=== PATIENT | male | born 1990 | race Caucasian/White ===

== ENCOUNTER 2020-01-04 11:54 | Emergency (ER) | payer SELFPAY ==
[~2020-01-04] VITALS: Ht 175.3 cm; Wt 97.8 kg
[2020-01-04] MEDS ORDERED: methylPREDNISolone SOD SUCC 125 MG/2 ML ONE (12:07)
[2020-01-04] MEDS ORDERED: DIPHENHYDRAMINE 50 MG/ML, 1ML ONE (12:07)
[2020-01-04] MEDS ORDERED: FAMOTIDINE 20 MG/2 ML ONE (12:07)
--- NOTE | 2020-01-04 12:10 | NUR ---
PT PRESENTS TO ED, STATES HE HAS DEVELOPED FACIAL SWELLING AND FULL BODY RASH/ITCHINESS 1 HR AGO AFTER TAKING FIRST DOSE OF KEFLEX FOR DENTAL ABCESS. PT IS A&O, ABLE TO TOLERATE SECRETIONS, ABLE TO SPEAK IN FULL SENTENCES WITHOUT DIFFICULTY. RESPS EVEN AND UNLABORED. ALL MONITORS IN PLACE. CHAVO CRUZ AT BEDSIDE.
--- NOTE | 2020-01-04 12:23 | NUR ---
PT MEDICATED PER EMAR, TOLERATED WELL. REPORT GIVEN AT BEDSIDE TO ROMINA MARTE.
--- NOTE | 2020-01-04 12:29 | NUR ---
report received from lilly cool.
[2020-01-04] MEDS ORDERED: SODIUM CHLORIDE FLUSH 10ML SYR IVF ONE (12:30)
[2020-01-04] MEDS ORDERED: DIPH,PERTUSS(ACELL),TET VAC/PF 0.5 ML IM-VACC ONE (12:30)
[2020-01-04] MEDS ORDERED: FAMOTIDINE 20 MG/2 ML IVPush ONE (12:30)
[2020-01-04] MEDS ORDERED: DIPHENHYDRAMINE 50 MG/ML, 1ML IV ONE (12:30)
[2020-01-04] MEDS ORDERED: methylPREDNISolone SOD SUCC 125 MG/2 ML IVPush ONE (12:30)
[2020-01-04] MEDS ORDERED: LIDOCAINE 2%, 20ML SQ ONE (12:30)
[2020-01-04 13:19] VITALS: BP 127/83
--- NOTE | 2020-01-04 13:51 | NUR ---
pt eloped. this rn walked in room and pt was gone. pt removed piv by him self and left it on the bed.
== END 2020-01-04 13:53 | disposition left against medical advice (07) ==
LOC: ED 13:47
DX: R22.0 Localized swelling, mass and lump, head (principal); T36.1X5A Adverse effect of cephalosporins and other beta-lactam antibiotics, initial encounter; Y92.89 Other specified places as the place of occurrence of the external cause
CPT/HCPCS: 96374; 96375; 99284; J1200; J2930; J3490

== ENCOUNTER 2020-09-29 20:02 | Emergency (ER) | payer SELFPAY ==
[~2020-09-29] VITALS: Ht 175.3 cm; Wt 130.0 kg
[2020-09-29 20:08] VITALS: BP 113/66
[2020-09-29] MEDS ORDERED: LIDOCAINE-MPF 1%, 5ML INFIL ONE (20:30)
== END 2020-09-29 22:00 | disposition home or self-care (01) ==
LOC: ED 20:05
DX: S01.01XA Laceration without foreign body of scalp, initial encounter (principal); W01.0XXA Fall on same level from slipping, tripping and stumbling without subsequent striking against object, initial encounter; Y93.89 Activity, other specified; Y92.410 Unspecified street and highway as the place of occurrence of the external cause; Y99.8 Other external cause status
CPT/HCPCS: 12001; 99283